=== PATIENT | female | born 1990 | race Caucasian/White ===

== ENCOUNTER 2019-07-25 18:37 | Emergency (ER) | payer OTHER ==
[~2019-07-25] VITALS: Ht 162.6 cm; Wt 72.6 kg
[2019-07-25 19:19] VITALS: BP 122/60
== END 2019-07-26 02:16 | disposition left against medical advice (07) ==
LOC: ER 18:37 → EDBD 18:37 → ER 07-26 02:16
DX: M54.9 Dorsalgia, unspecified (principal); V43.52XA Car driver injured in collision with other type car in traffic accident, initial encounter; Y93.89 Activity, other specified; Y99.8 Other external cause status; Y92.410 Unspecified street and highway as the place of occurrence of the external cause
CPT/HCPCS: 81025